=== PATIENT | male | born 1980 | race Caucasian/White ===

== ENCOUNTER 2021-01-16 01:17 | Emergency (ER) | payer SELFPAY ==
[~2021-01-16] VITALS: Ht 160 cm; Wt 73.4 kg
[2021-01-16] MEDS ORDERED: methylPREDNISolone 125 MG (Solu-MEDROL) VIAL IV STA (01:31)
[2021-01-16] MEDS ORDERED: FAMOTIDINE 20MG/2ML IV (PEPCID) IV STA (01:31)
[2021-01-16] MEDS: diphenhydrAMINE 50 MG/ML INJ (BENADRYL) IV STA ×2 (01:37→02:46)
--- NOTE | 2021-01-16 01:41 | ED General ---
General Stated Complaint: ALLERGIC REACTION Source of Information: Patient History of Present Illness Date Seen by Provider: Jan 16, 2021 Time Seen by Provider: 01:24 Initial Comments PT ARRIVES VIA POV FROM HOME STATES HE WENT TO BED AT 2030 AND WAS FINE, WOKE UP AT 0030 AND WAS ITCHING ALL OVER AND HIS LIPS WERE SWOLLEN NO RASH NOTED NO DIFFICULTY BREATHING OR SWALLOWING. STATES IT FEELS LIKE HE HAS A LUMP IN HIS THROAT, BUT DOES NOT HURT OR IMPAIR HIS BREATHING OR SWALLOWING OR TALKING TOOK 2 BENADRYL AND DRANK APPLEJUICE AROUND 0030 NO SWELLING OF HANDS OR FEET NO ITCHING ON PALMS OR SOLES NO HISTORY OF SIMILAR PT ATE CHICKEN FROM [employer] AROUND 173 PT WAS STARTED ON WELLBUTRIN 1 1/2 WEEKS AGO FOR ANXIETY ALSO TAKES PAXIL AND TRILEPTAL TAKES BENADRYL PRN FOR ALLERGIES PCP: GINNA Allergies and Home Medications Allergies Coded Allergies: No Known Drug Allergies (Unverified , 01/16/21) Home Medications Famotidine 40 Mg Tablet, 40 MG PO DAILY Prescribed by: TEN WOODS on 01/16/21413 Prednisone 20 Mg Tab, 40 MG PO DAILY Prescribed by: TEN WOODS on 01/16/21413 Patient Home Medication List Home Medication List Reviewed: Yes Review of Systems Review of Systems Constitutional: no symptoms reported EENTM: see HPI Respiratory: no symptoms reported; No cough Past Swghilc-Sxyzdq-Mmbooa Hx Past Med/Social Hx: Reviewed and Corrections made Patient Social History Alcohol Use: Regular Use ("2 DRINKS A NIGHT") Drug of Choice: THC Smoking Status: Current Everyday Smoker (1 PPD) Type Used: Cigarettes Substance type: Marijuana Seasonal Allergies Seasonal Allergies: Yes Past Medical History Surgeries: Yes (NOSE SURGERY) Respiratory: No Cardiac: No Neurological: No Genitourinary: No Gastrointestinal: No Musculoskeletal: No Endocrine: No HEENT: No Cancer: No Psychosocial: Yes Anxiety, Depression Physical Exam Vital Signs Vital Signs - First Documented 01/16/21 01:24 Temp 36.9 Pulse 81 Resp 16 B/P (MAP) 167/95 (119) Pulse Ox 96 O2 Delivery Room Air Capillary Refill : Height, Weight, BMI Height: '" Weight: lbs. oz. kg; BMI Method: General Appearance: No Apparent Distress, WD/WN HEENT: PERRL/EOMI, Pharynx Normal, Other (MODERATE SWELLING TO LIPS. NO OTHER FACIAL SWELLING. NO INTRA-ORAL OR POSTERIOR PHARYNX SWELLING. VOICE NORMAL. ) Neck: Normal Inspection Respiratory: Normal Breath Sounds, No Accessory Muscle Use, No Respiratory Distress Cardiovascular: Regular Rate, Rhythm, No Murmur Gastrointestinal: Non Tender, Soft Extremity: Normal Inspection, No Pedal Edema Neurologic/Psychiatric: Alert, Oriented x3, No Motor/Sensory Deficits, Normal Mood/Affect, senior process analyst II-XII Norm as Tested Skin: Normal Color, Warm/Dry; No Rash Progress/Results/Core Measures Suspected Sepsis SIRS Temperature: Pulse: Respiratory Rate: Blood Pressure / Mean: Results/Orders My Orders Orders - TEN WOODS DO Ed Iv/Invasive Line Start (01/16/21 01:31) Monitor-Rhythm Ecg Trace Only (01/16/21 01:31) Famotidine Injection (Pepcid Injection) (01/16/21 01:31) Diphenhydramine Injection (Benadryl Inje (01/16/21 01:31) Methylprednisolone Sod Succ (Solu-Medrol (01/16/21 01:31) Epinephrine 1 Mg Injection (Adrenalin I (01/16/21 02:15) Methylprednisolone Sod Succ (Solu-Medrol (01/16/21 03:45) Medications Given in ED Current Medications Medications Dose Ordered Sig/Ernesto Route Start Time Stop Time Status Last Admin Dose Admin Epinephrine HCl 0.3 mg ONCE ONCE IM 01/16/21 02:15 01/16/21 02:16 DC 01/16/21 02:21 0.3 MG Methylprednisolone Sodium Succinate 125 mg ONCE ONCE IVP 01/16/21 03:45 01/16/21 03:46 DC 01/16/21 03:42 125 MG Vital Signs/I&O 01/16/21 01/16/21 01:24 04:17 Temp 36.9 36.5 Pulse 81 87 Resp 16 16 B/P (MAP) 167/95 (119) 127/76 (119) Pulse Ox 96 95 O2 Delivery Room Air Room Air Capillary Refill : Progress Note : Progress Note GIVEN BENADRYL, SOLU-MEDROL X 2 DOSES, PEPCID AND EPINEPHRINE PT OBSERVED IN ER FOR 3 HOURS, WITH RESOLUTION OF ITCHING, AND SLIGHT IMPROVEMENT IN SWELLING OF LIPS NO WORSENING OF SYMPTOMS PT FEELS COMFORTABLE GOING HOME Departure Impression Primary Impression: ALLERGIC REACTION OF UNKNOWN CAUSE Disposition: HOME, SELF-CARE Condition: Stable Departure-Patient Inst. Referrals: [facility] (PCP) Primary Care Physician Patient Instructions: Allergic Reaction ED Add. Discharge Instructions: LOTS OF CLEAR LIQUIDS TAKE BENADRYL 50 MG EVERY 4 HOURS NEEDED FOR RASH, ITCHING AND SWELLING FOLLOW UP WITH YOUR DR IN 1-2 DAYS FOR FURTHER CARE, RETURN TO ER IF WORSE Scripts Famotidine (Pepcid) 40 Mg Tablet 40 MG PO DAILY, #10 TAB Prov: TEN WOODS DO 01/16/21 Prednisone (Prednisone) 20 Mg Tab 40 MG PO DAILY, #6 TAB 0 Refills Prov: TEN WOODS DO 01/16/21 TEN WOODS DO Jan 16, 2021 01:41
[2021-01-16] MEDS ORDERED: EPINEPHrine INJECTION 1 MG/ML AMP IM ONE (02:15)
[2021-01-16] MEDS ORDERED: methylPREDNISolone 125 MG (Solu-MEDROL) VIAL IVP ONE (03:45)
[2021-01-16] MEDS ORDERED: PRD20T PO (04:14)
[2021-01-16] MEDS ORDERED: FAMO40TA72 PO (04:14)
[2021-01-16 04:17] VITALS: BP 127/76
== END 2021-01-16 04:20 | disposition home or self-care (01) ==
LOC: ER 01:22
DX: T78.40XA Allergy, unspecified, initial encounter (principal); F17.210 Nicotine dependence, cigarettes, uncomplicated; Z79.52 Long term (current) use of systemic steroids
CPT/HCPCS: 93041

== ENCOUNTER 2021-01-17 21:28 | Emergency (ER) | payer SELFPAY ==
[~2021-01-17] VITALS: Ht 160 cm; Wt 73.4 kg
[~2021-01-17 21:28] MED LIST: FAMO40TA72 PO; PRD20T PO
--- NOTE | 2021-01-17 21:42 | ED Psychosocial ---
General Chief Complaint: Psych/Social Disorder Stated Complaint: DIFFICULTY BREATHING Source: patient Exam Limitations: no limitations (PRASANNA FAULKNER APRN) History of Present Illness Date Seen by Provider: Jan 17, 2021 Time Seen by Provider: 21:40 Initial Comments To ER with reports of difficulty breathing which he believes to be related to his anxiety. He states he had a couple of panic attacks during the day today. He has a history of anxiety for which she is on Trileptal and Paxil. He was recently started on Wellbutrin. He was here last night for an allergic reaction with lip swelling. He received epinephrine and Solu-Medrol. He has worsening of his anxiety today. Timing/Duration: just prior to arrival, getting worse Associated Symptoms: anxiety (PRASANNA FAULKNER APRN) Allergies and Home Medications Allergies Coded Allergies: No Known Drug Allergies (Unverified , 01/16/21) Home Medications Famotidine 40 Mg Tablet, 40 MG PO DAILY Prescribed by: TEN WOODS on 01/16/21 0414 Prednisone 20 Mg Tab, 40 MG PO DAILY Prescribed by: TEN WOODS on 01/16/21413 Patient Home Medication List Home Medication List Reviewed: Yes (PRASANNA FAULKNER APRN) Review of Systems Constitutional: see HPI EENTM: see HPI Respiratory: no symptoms reported Cardiovascular: no symptoms reported Genitourinary: no symptoms reported Musculoskeletal: no symptoms reported Skin: no symptoms reported Psychiatric/Neurological: See HPI, Anxiety (PRASANNA FAULKNER APRN) Past Txcpbbr-Gzvuno-Ohmfpk Hx Patient Social History Alcohol Beverage of Choice: Beer Drug of Choice: THC Type Used: Cigarettes 2nd Hand Smoke Exposure: Yes Recent Hopitalizations: No (PRASANNA FAULKNER APRN) Immunizations Up To Date Tetanus Booster (TDap): Unknown (PRASANNA FAULKNER APRN) Seasonal Allergies Seasonal Allergies: Yes (PRASANNA FAULKNER APRN) Past Medical History Surgeries: Yes (NOSE SURGERY) Respiratory: No Cardiac: No Neurological: No Genitourinary: No Gastrointestinal: No Musculoskeletal: No Endocrine: No HEENT: No Cancer: No Psychosocial: Yes Anxiety, Depression Integumentary: No Blood Disorders: No (PRASANNA FAULKNER APRN) Physical Exam Vital Signs - First Documented 01/17/21 21:33 Temp 36.6 Pulse 104 Resp 22 B/P (MAP) 176/115 (135) Pulse Ox 99 O2 Delivery Room Air (AGUILAR FERGUSON) Capillary Refill : (PRASANNA FAULKNER APRN) Height, Weight, BMI Height: '" Weight: lbs. oz. kg; 28.00 BMI Method: General Appearance: WD/WN, no apparent distress, other (Anxious appearing, tachypneic, oxygen saturation 100% room air. Lungs are clear with good air movement) HEENT: PERRL/EOMI, normal ENT inspection, other (No swelling visualized of the lips tongue or oropharynx) Neck: non-tender, full range of motion Respiratory: no respiratory distress, no accessory muscle use Cardiovascular: regular rate, rhythm, no murmur Gastrointestinal: normal bowel sounds, non tender, soft Extremities: normal range of motion, non-tender Neurologic/Psychiatric: alert, normal mood/affect, oriented x 3 Appearance/Memory: appropriate appearance, appropriate insight, neat Thoughts/Hallucinations: normal thought pattern, no apparent hallucination, auditory hallucinations Skin: normal color, warm/dry (PRASANNA FAULKNER APRN) Progress/Results/Core Measures Results/Orders My Orders Orders - AGUILAR FERGUSON Alprazolam Tablet (Xanax Tablet) (01/17/21 22:18) (AGUILAR FERGUSON) Vital Signs/I&O 01/17/21 21:33 Temp 36.6 Pulse 104 Resp 22 B/P (MAP) 176/115 (135) Pulse Ox 99 O2 Delivery Room Air (AGUILAR FERGUSON) Progress Progress Note : Time: 22:20 Progress Note Assumed care of the patient at shift change from Prasanna Faulkner and agree with the above documented history and physical exam. It does appear the patient is having an exacerbation of his anxiety which was improved after a dose of Xanax. It was probably contributed to by his newly started Wellbutrin 1 week ago and the steroids. We have negotiated another half milligram of Xanax and he has an appointment in the morning with his PCP to discuss his medications. (AGUILAR FERGUSON) Departure Impression Primary Impression: Anxiety Additional Impression: Panic attack Disposition: HOME, SELF-CARE Condition: Stable Departure-Patient Inst. Decision time for Depature: 22:22 (AGUILAR FERGUSON) Referrals: [facility]/ (PCP) Primary Care Physician Patient Instructions: Anxiety, Adult (DC) Add. Discharge Instructions: Follow-up with PCP All discharge instructions reviewed with patient and/or family. Voiced understanding. PRASANNA FAULKNER APRN Jan 17, 2021 21:42 AGUILAR FERGUSON Jan 17, 2021 22:23
[2021-01-17] MEDS ORDERED: ALPRAZolam 0.5 MG (XANAX) TAB PO SCH (21:45)
[2021-01-17] MEDS ORDERED: ALPRAZolam 0.5 MG (XANAX) TAB PO STA (22:18)
[2021-01-17 22:27] VITALS: BP 130/81
== END 2021-01-17 22:27 | disposition home or self-care (01) ==
LOC: EDUNIT# 21:28 → ER 21:31
DX: F41.9 Anxiety disorder, unspecified (principal); F41.0 Panic disorder [episodic paroxysmal anxiety]; Z77.22 Contact with and (suspected) exposure to environmental tobacco smoke (acute) (chronic); Z79.52 Long term (current) use of systemic steroids
CPT/HCPCS: 99283

== ENCOUNTER → 2021-02-27 | Outpatient (CLI) | payer SELFPAY ==
[~2021-02-27] MED LIST changes: +RT-ALBUTEROL SULF 2.5 MG/3 ML PRE-MIX VIAL INH ONE
== END ==
LOC: RT 13:00
PROVIDERS: ATTEND Nurse Practitioner Family
DX: R06.02 Shortness of breath (principal)
CPT/HCPCS: 94060; 94726; 94729

== ENCOUNTER 2022-06-08 13:03 | Emergency (ER) | payer SELFPAY ==
[~2022-06-08] VITALS: Ht 170 cm; Wt 73.4 kg
[~2022-06-08 13:03] MED LIST changes: -RT-ALBUTEROL SULF 2.5 MG/3 ML PRE-MIX VIAL INH ONE
[2022-06-08 14:29] LABS: BASOPHILS % (AUTO) 0 % (0-10); EOSINOPHILS % (AUTO) 0 % (0-10); HEMATOCRIT 43 % (40-54); HEMOGLOBIN 15.3 g/dL (13.3-17.7); LYMPHOCYTES # (AUTO) 0.6 10^3/uL (1.0-4.0); LYMPHOCYTES % (AUTO) 4 % (12-44); MEAN CORPUSCULAR HEMOGLOBIN 36 pg (25-34); MEAN CORPUSCULAR HGB CONC 36 g/dL (32-36); MEAN CORPUSCULAR VOLUME 101 fL (80-99); MONOCYTES # (AUTO) 0.6 10^3/uL (0.0-1.0); MONOCYTES % (AUTO) 4 % (0-12); NEUTROPHILS # (AUTO) 14.7 10^3/uL (1.8-7.8); NEUTROPHILS % (AUTO) 92 % (42-75); PLATELET COUNT 181 10^3/uL (130-400)
[2022-06-08] MEDS ORDERED: ONDANSETRON 4 MG/2 ML (SDV) Z0FRAN IVP ONE (14:30)
[2022-06-08] MEDS ORDERED: NS IV 1000 ML 1,000 ML IV SCH (14:30)
[2022-06-08 14:42] LABS: ALBUMIN 4.4 GM/DL (3.2-4.5); CHLORIDE 101 MMOL/L (98-107); POTASSIUM 3.7 MMOL/L (3.6-5.0); SODIUM 138 MMOL/L (135-145)
[2022-06-08 14:45] LABS: GLUCOSE 127 MG/DL (70-105); TOTAL PROTEIN 7.6 GM/DL (6.4-8.2)
[2022-06-08 14:46] LABS: CARBON DIOXIDE 21 MMOL/L (21-32)
[2022-06-08 14:47] LABS: BILIRUBIN,TOTAL 2.2 MG/DL (0.1-1.0)
[2022-06-08 14:48] LABS: ALKALINE PHOSPHATASE 138 U/L (40-136)
[2022-06-08 14:49] LABS: CREATININE SERUM 0.91 MG/DL (0.60-1.30); GFR ESTIMATED 109
--- NOTE | 2022-06-08 14:49 | ED GI ---
General Chief Complaint: Abdominal/GI Problems Stated Complaint: CHILLS, VOMITING, HANDS TINGLING Nursing Triage Note: PT STATES DRINKING LAST NIGHT, CC TODAY OF VOMITING, HANDS SHAKING, SWEATING, STATES HE DRINKS FREQUENTLY History of Present Illness Date Seen by Provider: Jun 08, 2022 Time Seen by Provider: 14:15 Initial Comments Patient is a 42 yo M who presents to the ED with nausea/vomiting/diarrhea and generalized abdominal pain that began this AM. He states he did drink alcohol last night. States he drank no more than his usual amount of a small bottle of liquor. States he has a h/o similar symptoms. Last episode was 2-3 weeks ago and seemed to resolve on its own. Denies any blood in the vomit or diarrhea. States he is also feeling anxious and states he has some tingling in both his hands earlier today. States he has a h/o anxiety. Allergies and Home Medications Allergies Coded Allergies: No Known Drug Allergies (Unverified , 01/16/21) Patient Home Medication List Home Medication List Reviewed: Yes Famotidine (Pepcid) 40 Mg Tablet, 40 MG PO DAILY Prescribed by: TEN WOODS on 01/16/21 0414 Prednisone (Prednisone) 20 Mg Tab, 40 MG PO DAILY Prescribed by: TEN WOODS on 01/16/21 0414 Review of Systems Review of Systems Constitutional: no symptoms reported EENTM: No Symptoms Reported Respiratory: No Symptoms Reported Cardiovascular: No Symptoms Reported Gastrointestinal: Abdominal Pain, Diarrhea, Nausea, Vomiting Genitourinary: No Symptoms Reported Musculoskeletal: no symptoms reported Psychiatric/Neurological: Anxiety Past Cxwcawg-Wapxbr-Plypah Hx Patient Social History Tobacco Use?: Yes Tobacco type used: Cigarettes Substance use?: Yes Substance type: Marijuana Alcohol Use?: Yes Alcohol type: Hard Liquor Alcohol Frequency: Daily Immunizations Up To Date Tetanus Booster (TDap): Unknown Seasonal Allergies Seasonal Allergies: Yes Past Medical History Surgeries: Yes (NOSE SURGERY) Respiratory: No Cardiac: No Neurological: No Genitourinary: No Gastrointestinal: No Musculoskeletal: No Endocrine: No HEENT: No Cancer: No Psychosocial: Yes Anxiety, Depression Integumentary: No Blood Disorders: No Physical Exam Vital Signs Vital Signs - First Documented 06/08/22 14:13 Temp 36.7 Pulse 120 Resp 20 B/P (MAP) 197/165 (176) Capillary Refill : Less Than 3 Seconds Height/Weight/BMI Height: '" Weight: lbs. oz. kg; 25.00 BMI Method: General Appearance: WD/WN, no apparent distress HEENT: PERRL/EOMI, normal ENT inspection, TMs normal, pharynx normal Neck: non-tender, full range of motion, supple, normal inspection Respiratory: chest non-tender, lungs clear, normal breath sounds, no respiratory distress Cardiovascular: regular rate, rhythm Gastrointestinal: normal bowel sounds, non tender, soft, no organomegaly Extremities: normal range of motion, non-tender Back: normal inspection Pelvic: normal external exam Neurologic/Psychiatric: no motor/sensory deficits, alert, normal mood/affect, oriented x 3 Skin: normal color, warm/dry Progress/Results/Core Measures Results/Orders Lab Results Laboratory Tests Test 06/08/22 14:20 Range/Units White Blood Count 16.0 H 4.3-11.0 10^3/uL Red Blood Count 4.23 L 4.30-5.52 10^6/uL Hemoglobin 15.3 13.3-17.7 g/dL Hematocrit 43 40-54 % Mean Corpuscular Volume 101 H 80-99 fL Mean Corpuscular Hemoglobin 36 H 25-34 pg Mean Corpuscular Hemoglobin Concent 36 32-36 g/dL Red Cell Distribution Width 14.6 H 10.0-14.5 % Platelet Count 181 130-400 10^3/uL Mean Platelet Volume 9.0 9.0-12.2 fL Immature Granulocyte % (Auto) 0 % Neutrophils (%) (Auto) 92 H 42-75 % Lymphocytes (%) (Auto) 4 L 12-44 % Monocytes (%) (Auto) 4 0-12 % Eosinophils (%) (Auto) 0 0-10 % Basophils (%) (Auto) 0 0-10 % Neutrophils # (Auto) 14.7 H 1.8-7.8 10^3/uL Lymphocytes # (Auto) 0.6 L 1.0-4.0 10^3/uL Monocytes # (Auto) 0.6 0.0-1.0 10^3/uL Eosinophils # (Auto) 0.0 0.0-0.3 10^3/uL Basophils # (Auto) 0.0 0.0-0.1 10^3/uL Immature Granulocyte # (Auto) 0.1 0.0-0.1 10^3/uL Neutrophils % (Manual) 90 % Lymphocytes % (Manual) 5 % Monocytes % (Manual) 5 % Macrocytosis SLIGHT Sodium Level 138 135-145 MMOL/L Potassium Level 3.7 3.6-5.0 MMOL/L Chloride Level 101 98-107 MMOL/L Carbon Dioxide Level 21 21-32 MMOL/L Anion Gap 16 H 5-14 MMOL/L Blood Urea Nitrogen 9 7-18 MG/DL Creatinine 0.91 0.60-1.30 MG/DL Estimat Glomerular Filtration Rate 109 BUN/Creatinine Ratio 10 Glucose Level 127 H 70-105 MG/DL Calcium Level 10.0 8.5-10.1 MG/DL Corrected Calcium 9.7 8.5-10.1 MG/DL Total Bilirubin 2.2 H 0.1-1.0 MG/DL Aspartate Amino Transf (AST/SGOT) 108 H 5-34 U/L Alanine Aminotransferase (ALT/SGPT) 56 H 0-55 U/L Alkaline Phosphatase 138 H 40-136 U/L Total Protein 7.6 6.4-8.2 GM/DL Albumin 4.4 3.2-4.5 GM/DL Lipase 13 8-78 U/L Serum Alcohol < 10 <10 MG/DL My Orders Orders - OCTAVIO HENSON APRN Cbc With Automated Diff (06/08/22 14:17) Comprehensive Metabolic Panel (06/08/22 14:17) Iv/Invasive Line Insertion .IV INSERT (06/08/22 14:17) Lipase (06/08/22 14:17) Alcohol (06/08/22 14:17) Ns Iv 1000 Ml (Sodium Chloride 0.9%) (06/08/22 14:30) Ondansetron Injection (Zofran Injectio (06/08/22 14:30) Manual Differential (06/08/22 14:20) Medications Given in ED Current Medications Medications Dose Ordered Sig/Ernesto Route Start Time Stop Time Status Last Admin Dose Admin Ondansetron HCl 4 mg ONCE ONCE IVP 06/08/22 14:30 06/08/22 14:31 DC 06/08/22 14:29 4 MG Vital Signs/I&O 06/08/22 14:13 Temp 36.7 Pulse 120 Resp 20 B/P (MAP) 197/165 (176) Blood Pressure Mean: 176 Progress Progress Note : Progress Note Patient is nontoxic and well hydrated on exam. Vital signs are overall reassuring. Patient is hypertensive and denies a h/o the same. No focal TTP, guarding, or rigidity noted on abd exam. Laboratory evaluation notable for mild leukocytosis and transaminitis. Bilirubin mildly elevated. Patient was given NS bolus and zofran with marked improvement in symptoms. Patient requested discharge on reassessment. This seems appropriate. Low concern for any acute abdominal pathology requiring surgical intervention. Will d/c home with recs for supportive care and follow-up with PCP. Return precautions for urgent symptomology discussed. Patient verbalized understanding. Departure Impression Primary Impression: Nausea vomiting and diarrhea Additional Impressions: Transaminitis Generalized abdominal pain Disposition: HOME, SELF-CARE Condition: Improved Departure-Patient Inst. Decision time for Depature: 15:30 Referrals: [facility] (PCP/Family) Primary Care Physician Patient Instructions: Nausea and Vomiting, Adult ED Scripts Ondansetron (Ondansetron Odt) 4 Mg Tab.rapdis 4 MG SL Q4H PRN for NAUSEA/VOMITING for 5 Days, #20 TAB 0 Refills Prov: OCTAVIO HENSON APRN 06/08/22 OCTAVIO HENSON APRN Jun 08, 2022 14:48
[2022-06-08 14:50] LABS: BUN/CREATININE RATIO 10
[2022-06-08 14:51] LABS: ALANINE AMINOTRANSFERASE 56 U/L (0-55); LYMPHOCYTES % (MANUAL) 5 %; MONOCYTES % (MANUAL) 5 %; NEUTROPHILS % (MANUAL) 90 %
[2022-06-08 14:52] LABS: LIPASE 13 U/L (8-78)
[2022-06-08] MEDS ORDERED: ONDA4TAB11 SL (15:37)
[2022-06-08 15:56] VITALS: BP 168/105
== END 2022-06-08 15:55 | disposition home or self-care (01) ==
LOC: EDUNIT# 13:03 → ER 13:05
DX: R10.84 Generalized abdominal pain (principal); R11.2 Nausea with vomiting, unspecified; R19.7 Diarrhea, unspecified; R74.01 Elevation of levels of liver transaminase levels; D72.829 Elevated white blood cell count, unspecified; E80.7 Disorder of bilirubin metabolism, unspecified; I10 Essential (primary) hypertension; F17.210 Nicotine dependence, cigarettes, uncomplicated; Z28.310 Unvaccinated for COVID-19
CPT/HCPCS: 80053; 83690; 85007; 85027; 99284; G0480; 36415; 80320